=== PATIENT | female | born 1965 | race Caucasian/White ===

== ENCOUNTER 2016-11-07 14:48 | Emergency (ER) | payer BC ==
[2016-11-07 14:57] VITALS: BP 157/96; PULSE 76; RESP 16; TEMP 97.2
[2016-11-07] MEDS ORDERED: ORPHENADRINE 30 MG/ML 2 ML VIAL IM STA (15:08)
[2016-11-07] MEDS ORDERED: KETOROLAC 60 MG/2 ML VIAL IM STA (15:08)
--- NOTE | 2016-11-07 15:11 | ED ---
General Adult HPI - General Chief complaint: Back Pain/Injury Stated complaint: Back/Flank Pain Time Seen by Provider: 11/07/16 14:55 Source: patient, EMS, RN notes reviewed Mode of arrival: EMS Limitations: no limitations - History of Present Illness Initial comments: 51-year-old female presents to the emergency Department chief complaint of left- sided rib pain. Patient states she has pain to the left side of her rib cage. 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 Patient states that seems to make her symptoms worse. Patient states if she moves her arm if she twists as she lifts something just causes her to have increased pain. Patient states going on for about 2 weeks. The foster traumas or injuries but states that she does do a lot of things with her arms and body. Patient states she continues to have this pain so she was concerned. There is no chest pain with this is no shortness of breath. Generally low back pain. She states that movement and certain presents directions and worse. Today when she was lifting laundry basket and made it worse so she was concerned. Patient states her pain is moderate there is no radiation.Patient denies any recent fever, chills, shortness of breath, back pain, abdominal pain, nausea vomiting, numbness or tingling, dysuria or hematuria, constipation or diarrhea, headaches or visual changes, or any other current symptoms. - Related Data Previous Rx's Medication Instructions Recorded Ibuprofen [Motrin] 600 mg PO Q6HR PRN #20 tab 11/07/16 Orphenadrine [Norflex] 100 mg PO Q12H #10 tablet.er 11/07/16 Allergies Allergy/AdvReac Type Severity Reaction Status Date / Time No Known Allergies Allergy Verified 11/07/16 14:57 Review of Systems ROS Statement: Those systems with pertinent positive or pertinent negative responses have been documented in the HPI. ROS Other: All systems not noted in ROS Statement are negative. Past Medical History Past Medical History: Hypertension History of Any Multi-Drug Resistant Organisms: None Reported Past Surgical History: Hernia Repair, Hysterectomy Past Psychological History: Anxiety Smoking Status: Current every day smoker Past Alcohol Use History: None Reported Past Drug Use History: None Reported General Exam Limitations: no limitations General appearance: alert, in no apparent distress ENT exam: Present: normal exam, mucous membranes moist Neck exam: Present: normal inspection. Absent: tenderness, meningismus, lymphadenopathy Respiratory exam: Present: normal lung sounds bilaterally, chest wall tenderness (Left lateral). Absent: respiratory distress, wheezes, rales, rhonchi, stridor Cardiovascular Exam: Present: regular rate, normal rhythm, normal heart sounds. Absent: systolic murmur, diastolic murmur, rubs, gallop, clicks Neurological exam: Present: alert, oriented X3 Psychiatric exam: Present: normal affect, normal mood Skin exam: Present: warm, dry, intact, normal color. Absent: rash Course Vital Signs 11/07/16 14:53 Temperature 97.2 F L Pulse Rate 76 Respiratory 16 Rate Blood Pressure 157/96 O2 Sat by Pulse 97 Oximetry Medical Decision Making - Medical Decision Making 51-year-old female presents emergency room chief complaint of left lateral rib pain. At this time patient's symptoms are most consistent with a left wrist strain social history of stocking shelves. This time we discussed that she needs to rest the area. We discussed Motrin Tylenol. We discussed heating pad and ice to the area. We discussed follow-up return parameters. All patient's family's questions. They stated they understood and agreed with the pain. They will be discharged. - Radiology Data Radiology results: report reviewed, image reviewed Disposition Clinical Impression: Rib pain on left side, Muscle strain Disposition: HOME SELF-CARE Condition: Stable Instructions: Muscle Strain (ED) Additional Instructions: Please use medication as discussed. Please follow up with family doctor if symptoms have not improved over the next two days. Please return to the emergency room if your symptoms increase or worsen or for any other concerns. Prescriptions: Ibuprofen [Motrin] 600 mg PO Q6HR PRN #20 tab PRN Reason: Pain Orphenadrine [Norflex] 100 mg PO Q12H #10 tablet.er Referrals: America Browning DO [Primary Care Provider] - 1-2 days Time of Disposition: 15:46
--- NOTE | 2016-11-07 15:26 | XR ---
EXAMINATION TYPE: XR ribs LT w pa chest xray DATE OF EXAM: 11/07/2016 3:21 PM COMPARISON: NONE HISTORY: Pain TECHNIQUE: One view chest and 4 views left ribs submitted. FINDINGS: No pneumothorax. Lungs are clear. No pleural effusion or consolidation. Rib cage is intact. IMPRESSION: 1. No acute displaced rib fracture.
== END 2016-11-07 16:32 | disposition home or self-care (01) ==
LOC: EC 14:48
DX: S66.912A Strain of unspecified muscle, fascia and tendon at wrist and hand level, left hand, initial encounter (principal); R07.81 Pleurodynia; M54.5 Low back pain; F17.200 Nicotine dependence, unspecified, uncomplicated; X50.1XXA Overexertion from prolonged static or awkward postures, initial encounter
CPT/HCPCS: 71101; 99284; 96372 ×2; J2360; J1885

== ENCOUNTER → 2020-04-08 | Outpatient (CLI) | payer BC ==
[2020-04-08 23:01] LABS: Chol/HDL Ratio 3.59; LDL Cholesterol,Calculated 151.4 mg/dL (0.0-131.0); VLDL Calculation 24.6 mg/dL (5.00-40.00)
== END | disposition home or self-care (01) ==
LOC: LABWHC1 08:18
PROVIDERS: ATTEND Internal Medicine Cardiovascular Disease
DX: I10 Essential (primary) hypertension (principal); R07.89 Other chest pain
CPT/HCPCS: 36415; 80061; 84450; 84460

== ENCOUNTER 2021-11-08 12:18 | Emergency (ER) | payer BC ==
[2021-11-08 13:07] VITALS: BP 134/96; PULSE 86; RESP 16; TEMP 98
[2021-11-08] MEDS ORDERED: KETOROLAC 15 MG/ML 1 ML VIAL IVP STA (15:16)
[2021-11-08] MEDS ORDERED: SODIUM CHLORIDE 0.9% 1,000 ML IV STA (15:16)
[2021-11-08 15:24] LABS: Appearance,Urine Clear (Clear); Bilirubin,Urine Negative (Negative); Blood,Urine Negative (Negative); Color,Urine Light Yellow; Glucose,Urine (UA) Negative (Negative); Ketones,Urine Negative (Negative); Leukocyte Esterase,Urine Negative (Negative); Nitrite,Urine Negative (Negative); PH, Urine 6.5 (5.0-8.0); Protein,Urine Negative (Negative); Specific Gravity,Urine 1.005 (1.001-1.035); Urobilinogen,Urine <2.0 mg/dL (<2.0)
--- NOTE | 2021-11-08 15:45 | ED ---
General Adult HPI - General Chief complaint: Back Pain/Injury Stated complaint: Kidney Stone,Sent by Time Seen by Provider: 11/08/21 15:06 Source: patient Mode of arrival: ambulatory Limitations: no limitations - History of Present Illness Initial comments: Patient is a 56-year-old female presenting with chief complaint of low back pain. Patient states that symptoms have been ongoing for the last few days. Pain is in the bilateral lower back, mainly on the right side. She states that it wraps around to the front. It pccasionally shoots down the leg. She has been taking acetaminophen with some relief. She states that on Monday she had an isolated episode of streaked blood on the tissue paper after wiping, states that she did not see any zhanna blood in her urine. Patient states that she has felt a heaviness in the pelvis and admits to urgency and frequency. She does not have a history of kidney stones. She denies any fever, chills, nausea, vomiting, chest pain, shortness of breath, dysuria, hematuria, palpitations, weakness, cough, URI like symptoms. - Related Data Home Medications Medication Instructions Recorded Confirmed lisinopriL 30 mg PO DAILY 11/07/16 11/08/21 Loratadine [Claritin] 10 mg PO DAILY PRN 11/08/21 11/08/21 Omeprazole 20 mg PO DAILY 11/08/21 11/08/21 Rosuvastatin Calcium [Crestor] 10 mg PO HS 11/08/21 11/08/21 Allergies Allergy/AdvReac Type Severity Reaction Status Date / Time No Known Allergies Allergy Verified 11/08/21 16:04 Review of Systems ROS Statement: Those systems with pertinent positive or pertinent negative responses have been documented in the HPI. ROS Other: All systems not noted in ROS Statement are negative. Past Medical History Past Medical History: Hypertension History of Any Multi-Drug Resistant Organisms: None Reported Past Surgical History: Hernia Repair, Hysterectomy Past Psychological History: Anxiety Smoking Status: Current every day smoker Past Alcohol Use History: None Reported Past Drug Use History: None Reported General Exam Limitations: no limitations General appearance: alert, in no apparent distress Head exam: Present: atraumatic, normocephalic, normal inspection Eye exam: Present: normal appearance, EOMI. Absent: scleral icterus Neck exam: Present: normal inspection Respiratory exam: Present: normal lung sounds bilaterally. Absent: respiratory distress, wheezes, rales, rhonchi, stridor Cardiovascular Exam: Present: regular rate, normal rhythm, normal heart sounds. Absent: systolic murmur, diastolic murmur, rubs, gallop, clicks Back exam: Present: normal inspection, full ROM, tenderness, CVA tenderness (R) (may also be due to muscular pain, difficult to distinguish at time of initial exam), paraspinal tenderness. Absent: CVA tenderness (L), vertebral tenderness Neurological exam: Present: alert, oriented X3, CN II-XII intact Psychiatric exam: Present: normal affect, normal mood Skin exam: Present: warm, dry, intact, normal color. Absent: rash Course Vital Signs 11/08/21 13:05 Temperature 98 F Pulse Rate 86 Respiratory 16 Rate Blood Pressure 134/96 O2 Sat by Pulse 99 Oximetry Medical Decision Making - Medical Decision Making Patient is a 56-year-old female presenting with chief complaint of low back pain. Patient states that her symptoms have been ongoing for the last few days. On Monday patient states that she noticed blood streaks on the tissue after urinating, denies any obvious hematuria. On exam, there is tenderness of the paraspinal muscles on palpation. There is some R CVA tenderness as well, may be due to muscular tenderness though. UA is negative. No leukocytosis, lab work is unremarkable. KUB xray shows no nephrolithiasis, and kidney stones are also unlikely due to absence of blood in the urine. KUB xray shows sclerosis of the pubic symphysis, likely benign, instructed patient to follow up with PCP. Lumbar xray shows chronic changes, no acute fracture or dislocation. Patient was given toradol, on reassessment she states her pain has improved. At this time, pain appears consistent with a musculoskeletal etiology. I offered the patient a muscle relaxer which she declined at this time, stating she would rather continue to take acetaminophen. Patient appears stable for discharge with outpatient follow-up at this time. I instructed the patient to follow up with her PCP in one to 2 days. Report back to ER if any worsening symptoms. Discussed return parameters. Answered all questions. Patient conveyed verbal understanding and agreed to the plan. I discussed this case with my attending Dr. Diana. - Lab Data Result diagrams: 11/08/21 15:41 11/08/21 15:41 Lab Results 11/08/21 11/08/21 11/08/21 Range/Units 15:14 15:41 15:41 WBC 7.1 (3.8-10.6) k/uL RBC 5.01 (3.80-5.40) m/uL Hgb 14.9 (11.4-16.0) gm/dL Hct 46.5 H (34.0-46.0) % MCV 92.9 (80.0-100.0) fL MCH 29.7 (25.0-35.0) pg MCHC 31.9 (31.0-37.0) g/dL RDW 13.8 (11.5-15.5) % Plt Count 344 (150-450) k/uL MPV 6.7 Neutrophils % 53 % Lymphocytes % 40 % Monocytes % 3 % Eosinophils % 2 % Basophils % 1 % Neutrophils # 3.7 (1.3-7.7) k/uL Lymphocytes # 2.8 (1.0-4.8) k/uL Monocytes # 0.2 (0-1.0) k/uL Eosinophils # 0.2 (0-0.7) k/uL Basophils # 0.1 (0-0.2) k/uL Sodium 139 (137-145) mmol/L Potassium 4.2 (3.5-5.1) mmol/L Chloride 105 (98-107) mmol/L Carbon Dioxide 25 (22-30) mmol/L Anion Gap 9 mmol/L BUN 11 (7-17) mg/dL Creatinine 0.49 L (0.52-1.04) mg/dL Est GFR (CKD-EPI)AfAm >90 (>60 ml/min/1.73 sqM) Est GFR (CKD-EPI)NonAf >90 (>60 ml/min/1.73 sqM) Glucose 95 (74-99) mg/dL Plasma Lactic Acid Ray (0.7-2.0) mmol/L Calcium 9.2 (8.4-10.2) mg/dL Total Bilirubin 0.6 (0.2-1.3) mg/dL AST 20 (14-36) U/L ALT 20 (4-34) U/L Alkaline Phosphatase 88 (38-126) U/L Total Protein 7.6 (6.3-8.2) g/dL Albumin 4.5 (3.5-5.0) g/dL Urine Color Light Yellow Urine Appearance Clear (Clear) Urine pH 6.5 (5.0-8.0) Ur Specific [place] 1.005 (1.001-1.035) Urine Protein Negative (Negative) Urine Glucose (UA) Negative (Negative) Urine Ketones Negative (Negative) Urine Blood Negative (Negative) Urine Nitrite Negative (Negative) Urine Bilirubin Negative (Negative) Urine Urobilinogen <2.0 (<2.0) mg/dL Ur Leukocyte Esterase Negative (Negative) 11/08/21 Range/Units 15:41 WBC (3.8-10.6) k/uL RBC (3.80-5.40) m/uL Hgb (11.4-16.0) gm/dL Hct (34.0-46.0) % MCV (80.0-100.0) fL MCH (25.0-35.0) pg MCHC (31.0-37.0) g/dL RDW (11.5-15.5) % Plt Count (150-450) k/uL MPV Neutrophils % % Lymphocytes % % Monocytes % % Eosinophils % % Basophils % % Neutrophils # (1.3-7.7) k/uL Lymphocytes # (1.0-4.8) k/uL Monocytes # (0-1.0) k/uL Eosinophils # (0-0.7) k/uL Basophils # (0-0.2) k/uL Sodium (137-145) mmol/L Potassium (3.5-5.1) mmol/L Chloride (98-107) mmol/L Carbon Dioxide (22-30) mmol/L Anion Gap mmol/L BUN (7-17) mg/dL Creatinine (0.52-1.04) mg/dL Est GFR (CKD-EPI)AfAm (>60 ml/min/1.73 sqM) Est GFR (CKD-EPI)NonAf (>60 ml/min/1.73 sqM) Glucose (74-99) mg/dL Plasma Lactic Acid Ray 1.0 (0.7-2.0) mmol/L Calcium (8.4-10.2) mg/dL Total Bilirubin (0.2-1.3) mg/dL AST (14-36) U/L ALT (4-34) U/L Alkaline Phosphatase (38-126) U/L Total Protein (6.3-8.2) g/dL Albumin (3.5-5.0) g/dL Urine Color Urine Appearance (Clear) Urine pH (5.0-8.0) Ur Specific [place] (1.001-1.035) Urine Protein (Negative) Urine Glucose (UA) (Negative) Urine Ketones (Negative) Urine Blood (Negative) Urine Nitrite (Negative) Urine Bilirubin (Negative) Urine Urobilinogen (<2.0) mg/dL Ur Leukocyte Esterase (Negative) Disposition Clinical Impression: Strain of lumbar region Disposition: HOME SELF-CARE Condition: Good Instructions (If sedation given, give patient instructions): Acute Low Back Pain (ED) Additional Instructions: Follow up with your PCP this week regarding your symptoms and any incidental findings on xray. Report back to ER if any worsening symptoms. You may utilize Motrin and Tylenol at home for pain control as needed. Is patient prescribed a controlled substance at d/c from ED?: No Referrals: Fely Donovan DO [Primary Care Provider] - 1-2 days Time of Disposition: 17:27
[2021-11-08 15:54] LABS: Basophils # (A) 0.1 k/uL (0-0.2); Basophils % (A) 1 %; Eosinophils # (A) 0.2 k/uL (0-0.7); Eosinophils % (A) 2 %; HCT 46.5 % (34.0-46.0); HGB 14.9 gm/dL (11.4-16.0); Lymphocytes # (A) 2.8 k/uL (1.0-4.8); Lymphocytes % (A) 40 %; MCH 29.7 pg (25.0-35.0); MCHC 31.9 g/dL (31.0-37.0); MCV 92.9 fL (80.0-100.0); Mean Platelet Volume 6.7; Monocytes # (A) 0.2 k/uL (0-1.0); Monocytes % (A) 3 %; Neutrophils # (A) 3.7 k/uL (1.3-7.7); Neutrophils % (A) 53 %; Platelet Count 344 k/uL (150-450); RBC 5.01 m/uL (3.80-5.40); RDW 13.8 % (11.5-15.5); WBC 7.1 k/uL (3.8-10.6)
--- NOTE | 2021-11-08 16:00 | XR ---
EXAMINATION TYPE: XR lumbar spine 2 or 3V DATE OF EXAM: 11/08/2021 CLINICAL HISTORY: Low back pain into both hips. TECHNIQUE: Frontal and lateral images of the lumbar spine are obtained. COMPARISON: None FINDINGS: There are 5 lumbar type vertebral bodies identified. The lumbar spine shows satisfactory alignment without evidence of acute fracture or dislocation. Vertebral body heights and disk space he ights are within normal limits. Mild to moderate anterior spurring T12-L1 level. Mild anterior spurri ng L2-L3 and L3-L4 levels. The overlying soft tissue appears unremarkable. IMPRESSION: As above.
--- NOTE | 2021-11-08 16:00 | XR ---
EXAMINATION TYPE: XR KUB DATE OF EXAM: 11/08/2021 COMPARISON: NONE HISTORY: Flank pain TECHNIQUE: One view abdominal series FINDINGS: The osseous structures are intact. The bowel gas pattern is nonspecific. Lung bases are clear. Tony ed sclerosis of the pubic symphysis. Arthropathy of the hips. Diffuse osteopenia. Faint calcification s in the pelvis likely vascular. IMPRESSION: 1. Nonspecific abdomen. No definite suspicious calcifications. Correlate with CT scan as clinically warranted. 2. Marked sclerosis of the pubic symphysis. 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 Other etiologies are not entirely excluded correlate clinically to exclude history of malignancy.
[2021-11-08 16:05] LABS: ALT 20 U/L (4-34); AST 20 U/L (14-36); African American GFR (CKD) >90 (>60 ml/min/1.73 sqM); Albumin 4.5 g/dL (3.5-5.0); Alkaline Phosphatase 88 U/L (38-126); Anion Gap 9 mmol/L; Blood Urea Nitrogen 11 mg/dL (7-17); Calcium 9.2 mg/dL (8.4-10.2); Carbon Dioxide 25 mmol/L (22-30); Chloride 105 mmol/L (98-107); Glucose 95 mg/dL (74-99); Non-African American GFR(CKD) >90 (>60 ml/min/1.73 sqM); Potassium 4.2 mmol/L (3.5-5.1); Sodium 139 mmol/L (137-145); Total Bilirubin 0.6 mg/dL (0.2-1.3); Total Protein 7.6 g/dL (6.3-8.2)
== END 2021-11-08 17:58 | disposition home or self-care (01) ==
LOC: EC 12:18
DX: S39.012A Strain of muscle, fascia and tendon of lower back, initial encounter (principal); I10 Essential (primary) hypertension; F17.200 Nicotine dependence, unspecified, uncomplicated; Z79.899 Other long term (current) drug therapy; X58.XXXA Exposure to other specified factors, initial encounter
CPT/HCPCS: 36415; 80053; 83605; 85025; 81003; 72100; 74018; 99284; 96374; 96361; J1885

== ENCOUNTER 2024-12-03 13:37 | Emergency (ER) | payer BC ==
[2024-12-03 13:41] VITALS: RESP 18
--- NOTE | 2024-12-03 14:46 | ED ---
ENT HPI - General Chief complaint: ENT Stated complaint: R ear issue Time Seen by Provider: 12/03/24 13:50 Source: patient, RN notes reviewed Mode of arrival: ambulatory Limitations: no limitations - History of Present Illness Initial comments: 59-year-old female presents emergency department complaint of right ear bleeding. Patient states that she felt she may have stuck her finger in her urine or some blood. Patient states she is in urgent care sent here for evaluation. Patient had increasing nasal congestion denies any deep ear pain. Denies any headache dizziness no other associated symptoms. - Related Data Home Medications Medication Instructions Recorded Confirmed lisinopriL 30 mg PO DAILY 11/07/16 11/08/21 Loratadine [Claritin] 10 mg PO DAILY PRN 11/08/21 11/08/21 Omeprazole 20 mg PO DAILY 11/08/21 11/08/21 Rosuvastatin Calcium [Crestor] 10 mg PO HS 11/08/21 11/08/21 Allergies Allergy/AdvReac Type Severity Reaction Status Date / Time No Known Allergies Allergy Verified 12/03/24 13:41 Review of Systems ROS Statement: Those systems with pertinent positive or pertinent negative responses have been documented in the HPI. ROS Other: All systems not noted in ROS Statement are negative. Past Medical History Past Medical History: Hypertension History of Any Multi-Drug Resistant Organisms: None Reported Past Surgical History: Hernia Repair, Hysterectomy Past Psychological History: Anxiety Smoking Status: Current every day smoker Past Alcohol Use History: None Reported Past Drug Use History: None Reported General Exam Limitations: no limitations General appearance: alert, in no apparent distress Head exam: Present: atraumatic, normocephalic, normal inspection Eye exam: Present: normal appearance, PERRL, EOMI. Absent: scleral icterus, conjunctival injection, periorbital swelling ENT exam: Present: normal oropharynx, mucous membranes moist, TM's normal bilaterally. Absent: normal exam, normal external ear exam (Blood in the EAC) Neck exam: Present: normal inspection, full ROM. Absent: tenderness, meningismus, lymphadenopathy Respiratory exam: Present: normal lung sounds bilaterally. Absent: respiratory distress, wheezes, rales, rhonchi, stridor Cardiovascular Exam: Present: regular rate, normal rhythm, normal heart sounds. Absent: systolic murmur, diastolic murmur, rubs, gallop, clicks Neurological exam: Present: alert, oriented X3, CN II-XII intact, reflexes normal. Absent: motor sensory deficit Course Vital Signs 12/03/24 13:38 Temperature 97.6 F Pulse Rate 89 Respiratory 18 Rate Blood Pressure 172/96 O2 Sat by Pulse 99 Oximetry Medical Decision Making - Medical Decision Making Was pt. sent in by a medical professional or institution (VICENTE Mathias, BUSINESS SUPPORT LIAISON, urgent care, hospital, or penitentiary...) When possible be specific @Urgent care Did you speak to anyone other than the patient for history (EMS, parent, family, police, friend...)? What history was obtained from this source @ -No Did you review nursing and triage notes (agree or disagree)? Why? @ -I reviewed and agree with nursing and triage notes Were old charts reviewed (outside hosp., previous admission, EMS record, old EKG, old radiological studies, urgent care reports/EKG's, penitentiary records)? Report findings @ -No old charts were reviewed Differential Diagnosis (chest pain, altered mental status, abdominal pain women, abdominal pain men, vaginal bleeding, weakness, fever, dyspnea, syncope, headache, dizziness, GI bleed, back pain, seizure, CVA, palpatations, mental health, musculoskeletal)? @ -Otitis media otitis externa EKG interpreted by me (3pts min.). @ -None X-rays interpreted by me (1pt min.). @ -None done CT interpreted by me (1pt min.). @ -None done U/S interpreted by me (1pt. min.). @ -None done What testing was considered but not performed or refused? (CT, X-rays, U/S, labs)? Why? @ -None What meds were considered but not given or refused? Why? @ -None Did you discuss the management of the patient with other professionals (professionals i.e. VICENTE Mathias, BUSINESS SUPPORT LIAISON, lab, RT, psych nurse, social service assistant, financial institution manager, teacher, aoc airspace control officer, binder caser)? Give summary @ -No Was smoking cessation discussed for >3mins.? @ -No Was critical care preformed (if so, how long)? @ -No Were there social determinants of health that impacted care today? How? (Homelessness, low income, unemployed, alcoholism, drug addiction, transportation, low edu. Level, literacy, decrease access to med. care, longterm, rehab)? @ -No Was there de-escalation of care discussed even if they declined (Discuss DNR or withdrawal of care, Hospice)? DNR status @ -No What co-morbidities impacted this encounter? (DM, HTN, Smoking, COPD, CAD, C ancer, CVA, ARF, Chemo, Hep., AIDS, mental health diagnosis, sleep apnea, morbid obesity)? @ -None Was patient admitted / discharged? Hospital course, mention meds given and route, prescriptions, significant lab abnormalities, going to OR and other pertinent info. @ -discharge patient has some bleeding, otitis external drops. Return parameters discussed. Undiagnosed new problem with uncertain prognosis? @ -No Drug Therapy requiring intensive monitoring for toxicity (Heparin, Nitro, Insulin, Cardizem)? @ -No Were any procedures done? @ -No Diagnosis/symptom? @ -Right otitis externa Acute, or Chronic, or Acute on Chronic? @ -[Acute Uncomplicated (without systemic symptoms) or Complicated (systemic symptoms)? @ -Uncomplicated Side effects of treatment? @ -No Exacerbation, Progression, or Severe Exacerbation? @ -No Poses a threat to life or bodily function? How? (Chest pain, [place], [place], pneumonia, PE, COPD, DKA, ARF, appy, cholecystitis, CVA, Diverticulitis, Homicidal, Suicidal, threat to staff... and all critical care pts) @ -No Disposition Clinical Impression: Injury of external auditory canal Disposition: HOME SELF-CARE Condition: Stable Instructions (If sedation given, give patient instructions): Earache (ED) Additional Instructions: Use eardrops 4 drops twice daily for 7 days. Please return to the Emergency Department if symptoms worsen or any other concerns. Is patient prescribed a controlled substance at d/c from ED?: No Referrals: Ayan Youngblood DO [Primary Care Provider] - 1-2 days Luis Alfredo Yañez MD [STAFF PHYSICIAN] - 1-2 days Time of Disposition: 14:46
[2024-12-03] MEDS: CIPROFLOXACIN-DEXAMETH 0.3-0.1% DROPS 7.5 ML BTL RIGHT EAR STA (15:02)
[2024-12-03 15:08] VITALS: BP 166/84; PULSE 88; TEMP 97.8
== END 2024-12-03 15:05 | disposition home or self-care (01) ==
LOC: EC 13:37
DX: S09.91XA Unspecified injury of ear, initial encounter (principal); F17.200 Nicotine dependence, unspecified, uncomplicated; X58.XXXA Exposure to other specified factors, initial encounter
CPT/HCPCS: 99282